=== PATIENT | male | born 1950 | race African-American/Black ===

== ENCOUNTER → 2019-06-11 | Outpatient (CLI) | payer MEDICARE ==
[~2019-06-11] MED LIST: ZOLPIDEM 5 MG TABLET. PO ONE
--- NOTE | 2019-06-13 13:02 | SLEEP ---
DATE OF STUDY: 06/11/2019 ATTENDING PHYSICIAN: Dr. Appiah. REFERRING PHYSICIAN: Casper Bustillo MD The patient is 69 years old who weighs 221 pounds with a BMI of 39. The patient was referred back for a sleep study at [facility]. This was a split night study. The patient's last sleep study was in 2015, but he never received CPAP. During the night study, the patient spent 485 minutes in bed and slept for 395 minutes with a sleep efficiency of 81%. Sleep latency was 43 minutes with a REM latency of 374 minutes. Overall, sleep architecture showed increased stage 1 sleep, normal stage 2 sleep, normal slow wave and reduced REM sleep. During the initial diagnostic portion of the study, the patient had 112 obstructive apneas, 69 hypopneas, 70 mixed apneas and no central apneas. The patient's apnea-hypopnea index was 83 per hour. Supine or REM sleep was not seen. EKG monitoring revealed an average heart rate of 61 beats per minute, no sustained arrhythmias were observed. Occasional PACs seen. No PLMs observed. Nocturnal oximetry study revealed an average oxygen saturation of 97% with the lowest of 81%. 14% of time oxygen saturation remained between 80% and 89%. The patient met the criteria for CPAP initiation. It was started at 7 cm water and titrated up to 15 cm water. At the final pressure, the patient slept for 53 minutes. The patient had supine as well as REM sleep. The patient's AHI was reduced to 6 per hour and this was predominantly due to few treatment emergent central apneas. Oxygen saturation remained above 90%. The patient used medium size nasal pillows. IMPRESSION: 1. Severe sleep apnea-hypopnea syndrome at an AHI of 83 per hour. 2. Nocturnal hypoxia secondary to obstructive sleep apnea, but resolved with CPAP. 3. No clinically significant PLMs. RECOMMENDATIONS: 1. CPAP at 15 cm water completely eliminated the patient's sleep apnea and should be used on a nightly basis. 2. Follow up in 4-6 weeks to assess compliance with CPAP and to document clinical improvement. 3. Weight loss is strongly advised. 4. Avoid [employer] depressants. 5. Caution regarding driving or operating heavy machinery until symptoms of sleep apnea resolve with the use of CPAP. KIRA U. PHAN, MD DR: SHIRA/noelle JOB#: [id number] / [id number] JAYLEN Vogel MD, GEORGE MD
== END | disposition home or self-care (01) ==
LOC: RT 18:53
PROVIDERS: ATTEND Internal Medicine Pulmonary Disease
DX: G47.33 Obstructive sleep apnea (adult) (pediatric) (principal); G47.34 Idiopathic sleep related nonobstructive alveolar hypoventilation
CPT/HCPCS: 95810